=== PATIENT | female | born 1980 | race African-American/Black ===

== ENCOUNTER 2018-01-18 06:35 | Inpatient (IN) | payer MEDICAID ==
[~2018-01-18] VITALS: Ht 167.6 cm; Wt 98.4 kg
[2018-01-18] MEDS ORDERED: METHYLERGONOVINE MALEATE 0.2 MG/ML AMP IM ONE (07:11)
[2018-01-18] MEDS ORDERED: LACT. RINGERS/OXYTOCIN 20UNITS 1,000 ML IV ONE (07:11)
[2018-01-18] MEDS ORDERED: PHISODERM TOP SOLN 240ML BTL TOP ONE (07:16)
[2018-01-18] MEDS ORDERED: LACTATED RINGER'S 1,000 ML IV SCH (07:19)
[2018-01-18] MEDS ORDERED: LACT. RINGERS/OXYTOCIN 20UNITS 1,000 ML IV SCH (07:19)
[2018-01-18] MEDS ORDERED: PHISODERM TOP SOLN 240ML BTL TOP PRN (07:30)
[2018-01-18] MEDS ORDERED: DERMOPLAST 60ML BOTTLE TOP PRN (07:30)
[2018-01-18] MEDS ORDERED: WITCH HAZEL-GLYCERIN PAD TOP PRN (07:30)
[2018-01-18] MEDS ORDERED: ACETAMINOPHEN 325 MG TAB PO PRN (07:30)
[2018-01-18] MEDS ORDERED: METHYLERGONOVINE MALEATE 0.2 MG/ML AMP IM PRN (07:30)
[2018-01-18 07:50] LABS: Urine Bacteria FEW /hpf (None Seen); Urine Blood 2+ /uL (Negative); Urine Mucus FEW (None Seen); Urine Specific Gravity 1.021 (1.001-1.035); Urine WBC 8 /hpf (0 - 5)
[2018-01-18] MEDS: IBUPROFEN 600 MG TAB PO PRN ×2 (07:58→19:29)
[2018-01-18 08:02] LABS: Alcohol, Urine < 3.0 mg/dL (0-5); Amphetamine Screen, Urine NEGATIVE (NEGATIVE); Barbiturate Scree,Urine NEGATIVE (NEGATIVE); Benzodiazephine Screen, Urine NEGATIVE (NEGATIVE); Cannabinoid Screen, Urine NEGATIVE (NEGATIVE); Cocaine Screen, Urine NEGATIVE (NEGATIVE); Opiate Scree,Urine NEGATIVE (NEGATIVE); Phencyclidine Screen, Urine NEGATIVE (NEGATIVE)
[2018-01-18 08:49] LABS: Basophils # (auto) 0 uL; Basophils % (auto) 0.1 % (0.0-2.0); Eosinophils # (auto) 0 uL; Eosinophils % (auto) 0.1 % (0.0-7.0); Hematocrit 36.8 % (36.0-46.0); Hemoglobin 12.3 g/dL (12.2-16.2); Lymphocytes # (auto) 0.8 uL; Lymphocytes % (auto) 8.7 % (10.0-50.0); Mean Corpuscular Hemoglobin 32.5 pg (28.0-32.0); Mean Corpuscular Hgb Conc. 33.5 g/dL (32.0-36.0); Monocytes # (auto) 0.6 uL; Neutrophils # (auto) 7.7 uL; Neutrophils % (auto) 84.1 % (37.0-80.0); Nucleated Red Blood Cells % 0.3 %; Platelet Count (auto) 193 10^3/uL (140-450); Red Blood Cells 3.79 10^6/uL (4.0-5.20); Red Cell Distribution Width 13.8 % (11.8-14.3); White Blood Cell 9.1 10^3/uL (4.4-10.8)
[2018-01-18 09:01] LABS: INR 0.87 (0.9-1.15); Partial Thromboplastin Time 34.2 sec (23.78-33.04); Prothrombin Time 9.4 sec (9.27-12.13)
[2018-01-18 09:06] LABS: Albumin 2.3 g/dL (3.4-5.0); Calcium 8.3 mg/dL (8.5-10.1); Potassium 3.6 mmol/L (3.5-5.1)
[2018-01-18 09:12] LABS: BUN/Creatinine Ratio 9.2; Total Protein 6.5 g/dL (6.4-8.2)
[2018-01-18 09:20] LABS: Bilirubin, Total 0.5 mg/dL (0.2-1.0)
[2018-01-18 11:00] VITALS: BP 108/53
[2018-01-18] MEDS ORDERED: TETANUS-DIPTH-ACEL PERTUSSIS 0.5ML SYRG IM ONE (13:45)
[2018-01-18 15:00] VITALS: BP 113/62
[2018-01-18 23:01] VITALS: BP 115/55
[2018-01-19 03:10] VITALS: BP 112/65
[2018-01-19] MEDS ORDERED: SODIUM CHLORIDE LOCK 0 ML ONE (03:52)
[2018-01-19] MEDS ORDERED: PREN27TA7 OR (05:48)
[2018-01-19 10:30] VITALS: BP 123/79
[2018-01-20 06:05] LABS: RPR Non Reactive (Non Reactive)
== END 2018-01-19 11:20 | disposition home or self-care (01) | DRG 560 ==
LOC: LDRP 06:35
PROVIDERS: ADMIT Obstetrics & Gynecology; ATTEND Obstetrics & Gynecology
PROC: 10E0XZZ Delivery of Products of Conception, External Approach (ICD-10-PCS; principal; 2018-01-18)
PROC: 3E0234Z Introduction of Serum, Toxoid and Vaccine into Muscle, Percutaneous Approach (ICD-10-PCS; 2018-01-18)
DX: O77.0 Labor and delivery complicated by meconium in amniotic fluid (principal); Z23 Encounter for immunization; Z39.0 Encounter for care and examination of mother immediately after delivery; Z37.0 Single live birth; Z3A.38 38 weeks gestation of pregnancy
CPT/HCPCS: 36415; 59414; 80053; 80307; 81001; 85025; 85610; 85730; 86592; 86850; 86900; 86901; 90472; 90715; 96365; 96366; 96372; J2590